=== PATIENT | female | born 1950 | race Caucasian/White ===

== ENCOUNTER 2022-12-05 13:30 | Outpatient (CLI) | payer MEDICARE, BC ==
[~2022-12-05] VITALS: Ht 157.5 cm; Wt 54.4 kg
[2022-12-05 15:00] LABS: BASOPHILS # (AUTO) 0.1 X10'3 (0-0.2); EOSINOPHILS # (AUTO) 0.1 X10'3 (0-0.9); LYMPHOCYTES # (AUTO) 1.2 X10'3 (1.1-4.8); MONOCYTES # (AUTO) 0.5 X10'3 (0-0.9); MONOCYTES % (AUTO) 10.8 % (2-12); NEUTROPHILS # (AUTO) 2.6 X10'3 (1.8-7.7)
[2022-12-05 15:02] LABS: BASOPHILS % (AUTO) 1.3 % (0-1); EOSINOPHILS % (AUTO) 1.9 % (0-6); LYMPHOCYTES % (AUTO) 26.4 % (21-51); MEAN CORPUSCULAR HGB CONC 33.6 g/dL (33.0-36.5); MEAN CORPUSCULAR VOLUME 98.1 FL (78-98); MEAN PLATELET VOLUME 9.1 FL (7.4-10.4); NEUTROPHILS % (AUTO) 59.6 % (42-75); PRE OP HEMATOCRIT 37.1 % (35.0-45.0); PRE OP HEMOGLOBIN 12.5 g/dL (12.0-16.0); PRE OP PLATELET COUNT 230 X10'3 (140-440); RED BLOOD COUNT 3.78 X10'6 (4.20-5.60); RED CELL DISTRIBUTION WIDTH 15.7 % (11.5-14.5)
[2022-12-05 15:30] LABS: ALBUMIN 4.1 G/DL (3.4-5.0); ALBUMIN/GLOBULIN RATIO 1.8 (1.1-1.5); ALKALINE PHOSPHATASE 78 IU/L (46-116); BLOOD UREA NITROGEN 17 MG/DL (7-18); BUN/CREATININE RATIO 19.8 (10.0-20.0); CALCIUM 8.7 MG/DL (8.5-10.1); CHLORIDE 104 MMOL/L (99-107); CREATININE 0.86 MG/DL (0.40-0.90); PRE OP ALT 39 U/L (30-65); PRE OP ANION GAP 9 (8-16); PRE OP AST 30 U/L (10-37); PRE OP BILIRUB, TOTAL 0.3 MG/DL (0.0-1.0); PRE OP GLUCOSE 89 MG/DL (70-104); PRE OP SODIUM 142 MMOL/L (135-145); TOTAL CARBON DIOXIDE 29.2 MMOL/L (24-32); TOTAL PROTEIN 6.4 G/DL (6.4-8.2); eGFR 65 ML/MIN
[2022-12-05] MEDS ORDERED: [UNRECOGNIZED DRUG - OTHER] (17:41)
[2022-12-05] MEDS ORDERED: VITAMIN D (17:41)
[2022-12-05] MEDS ORDERED: BENA20TA82 PO (17:41)
[2022-12-05] MEDS ORDERED: TIZA4CAP PO (17:41)
[2022-12-05] MEDS ORDERED: FAMO40TA58 PO (17:41)
[2022-12-05] MEDS ORDERED: TRAM50TA2 PO (17:41)
[2022-12-05] MEDS ORDERED: LEVO150T8 PO (17:41)
[2022-12-05] MEDS ORDERED: ALBU8HFA PO (17:41)
[2022-12-05] MEDS ORDERED: VITAMIN B12 (17:41)
[2022-12-05] MEDS ORDERED: EST1T PO (17:41)
[2022-12-15] MEDS ORDERED: ringers solution, lacted 1,000 ML IV SCH (05:00)
[2022-12-15] MEDS ORDERED: tranexamic acid inj. 1,000 MG in normal saline IV soln 100ML IV ONE (05:30)
[2022-12-15] MEDS ORDERED: celeCOXIB 100mg capsule PO ONE (05:30)
[2022-12-15] MEDS ORDERED: acetaminophen 325mg tablet PO ONE (05:30)
[2022-12-15] MEDS ORDERED: vancomycin/NS 1 GM in NS 250 ML IV ONE (05:30)
[2022-12-15] MEDS ORDERED: metoclopramide 5 mg/ml inj IV ONE (05:30)
[2022-12-15] MEDS ORDERED: oxyCODONE SR 10mg (sust. release) tab PO ONE (05:30)
[2022-12-15] MEDS ORDERED: gabapentin 300mg capsule PO ONE (05:30)
[2022-12-15] MEDS ORDERED: famotidine 20mg tablet PO ONE (05:30)
== END 2022-12-05 23:59 | disposition home or self-care (01) ==
LOC: LAB 13:30 → EDSTATUS 12-15 09:30
PROVIDERS: ATTEND Orthopaedic Surgery
DX: Z01.818 Encounter for other preprocedural examination (principal); M17.11 Unilateral primary osteoarthritis, right knee; Z88.8 Allergy status to other drugs, medicaments and biological substances; Z88.1 Allergy status to other antibiotic agents; Z79.899 Other long term (current) drug therapy
CPT/HCPCS: 36415; 80053; 84443; 85025; 86885; 86900; 86901; 87081; J7120